=== PATIENT | male | born 1985 | race Caucasian/White ===

== ENCOUNTER 2021-04-15 21:26 | Emergency (ER) | payer MEDICARE, SELFPAY ==
[2021-04-15 21:42] VITALS: BP 136/66; PULSE 106; O2SAT 98
[2021-04-15 21:49] VITALS: BP 125/64; PULSE 113; RESP 20; TEMP 36.9; O2SAT 95; BMI 29.5
--- NOTE | 2021-04-15 21:57 | ED.OVERDOSE ---
HPI - Overdose General Chief Complaint: Overdose Stated Complaint: OD? Time Seen by Provider: 04/15/21 21:35 Source: patient Mode of arrival: ambulatory Limitations: no limitations History of Present Illness HPI Narrative: Patient comes to the emergency room after overdosing on heroin. Patient was staying with a friend. Patient overdosed, bystanders sprayed nasal Narcan. Patient woke up. EMS called and brought the patient to emergency room. Patient states he feel normal. Has no complaints. Patient states that his son 3 weeks ago and started using heroin again. Patient denies suicidal homicidal ideation Related Data Allergies Allergy/AdvReac Type Severity Reaction Status Date / Time No Known Allergies Allergy Verified 04/15/21 21:39 Review of Systems Review of Systems: Constitutional : No Weight loss, No Fever, No Chills, No Night Sweats, No Fatigue, No Malaise ENT/Mouth : No Hearing loss, No Ear Pain, No Nasal Congestion, No Sinus Pain, No Hoarseness, No sore throat, No Rhinorrhea, No Swallowing Difficulty Eyes: No Eye Pain, No Swelling, No Redness, No Foreign Body, No Discharge, No Vision Changes Cardiovascular : No Chest Pain, No SOB, No Dyspnea on Exertion, No Orthopnea, No Edema, No Palpitations Respiratory : No Cough, No Sputum, No Wheezing, No Smoke Exposure, No Dyspnea Gastrointestinal : No Nausea, No Vomiting, No Diarrhea, No Constipation, No abdominal Pain, No Hematochezia, No Melena Genitourinary : no irregular bleeding, No Dysuria, No Urinary Frequency, No Hematuria, No Urinary Incontinence, No Urgency, No Flank Pain, No Urinary Flow Changes, No Hesitancy Musculoskeletal : No joint pain, No Myalgias, No Joint Swelling Skin : No Skin Lesions, No rash Neuro : No Weakness, No Numbness, No Paresthesias, No Loss of Consciousness, No Dizziness, No Headache Psych : No Anxiety/Panic, No Depression, No SI/HI/AH/VH, No Social Issues, Heme/Lymph: No Bruising, No Bleeding,No Lymphadenopathy Endocrine : No Polyuria, No Polydipsia, No Temperature Intolerance PMFSH Past Medical History Medical History Drug abuse Physical Exam Vital Signs: Vital Signs: Last Vital Signs Temp 98.5 F 04/15/21 21:49 Pulse 113 H 04/15/21 21:49 Resp 20 04/15/21 21:49 BP 125/64 04/15/21 21:49 Pulse Ox 95 04/15/21 21:49 Body Mass Index 29.5 Const: Other: Appearance: Alert. Oriented X3. No acute distress. Eyes: Pupils equal, round and reactive to light. ENT: Pharynx normal. Neck: Normal inspection. Neck supple. No lymph nodes noted. No crepitus CVS: Normal heart rate and rhythm. Pulses normal. Normal S1 and S2 Respiratory: No respiratory distress. Breath sounds normal. No Wheezing. No rales Abdomen: Soft and nontender. No rigidity. No distention. Skin: Skin warm and dry. 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 No lower extremity edema. No Lacerations. No Rash Neuro: Oriented X 3. No motor deficit. No sensory deficit. Moving all extermities. No slurred speech. Cranial nerves 2-12 grossly intact Psych: Calm, cooperative Course Course Course Narrative: Patient remains alert and oriented x3, oxygen saturation 95% on room air, patient ambulatory. Patient denies suicidal or homicidal ideation. Care team came to evaluate the patient. However, patient left before seeing them or receiving his discharge papers Discharge Plan Discharge Clinical Impression: Drug overdose Qualifiers: Encounter type: initial encounter Injury intent: accidental or unintentional Qualified Code(s): T50.901A - Poisoning by unspecified drugs, medicaments and biological substances, accidental (unintentional), initial encounter Patient Disposition: Home, Self-Care Instructions: Adult Overdose (ED) Additional Instructions: Please follow-up with your primary care physician tomorrow. If you have any worsening or new symptoms, please return to the emergency room or call 911
[2021-04-15] MEDS: Acetaminophen 325 MG TABLET 650 MG PO (22:05)
--- NOTE | 2021-04-15 22:27 | MHC.CARE ---
CARE Team attempted to meet with pt to offer SUDE and to provide substance use treatment resources, but pt had eloped before CARE Team could see him.
== END 2021-04-15 22:39 | disposition home or self-care (01) ==
LOC: HO.ED 22:39
PROVIDERS: Emergency Provider Emergency Medicine
DX: T40.1X1A Poisoning by heroin, accidental (unintentional), initial encounter (principal); Y92.9 Unspecified place or not applicable; F11.10 Opioid abuse, uncomplicated; Z72.89 Other problems related to lifestyle; Z63.4 Disappearance and death of family member
CPT/HCPCS: 99283; 99284